=== PATIENT | female | born 1980 | race Native Hawaiian/Other Pacific Islander ===

== ENCOUNTER 2018-06-21 11:32 | Emergency (ER) | payer SELFPAY ==
[~2018-06-21] VITALS: Ht 182.9 cm; Wt 64.9 kg
[2018-06-21] MEDS ORDERED: PROG50VI IM (11:42)
[2018-06-21] MEDS ORDERED: ESTR10VI2 IM (11:43)
--- NOTE | 2018-06-21 11:47 | NUR ---
PT A/OX4, BIB [facility] FOR VAGINAL BLEEDING SINCE THIS AM. PT REPORTS SHE IS 4 WEEKS AND HAS BEEN TO HER [employer]. PT STATES SHE'S BEEN SPOTTING SINCE THIS AM. PT ALSO REPORTS ABD PAIN THAT IS NON-PROVOKED, ACHING IN QUALITY, DOES NOT RADAITE, 06/01, CONSTANT. VSS. PT DENIES C/P, SOB, N/V/D, DIZZINESS, HEADACHE.
[2018-06-21 12:00] LABS: BASOPHILS % (AUTO) 0.3 % (0.0-2.0); EOSINOPHILS # (AUTO) 0.3 K/uL (0.0-0.7); EOSINOPHILS % (AUTO) 1.8 % (0.0-7.0); HEMATOCRIT 39.7 % (31.2-41.9); HEMOGLOBIN 13.5 g/dL (10.9-14.3); LYMPHOCYTES # (AUTO) 1.5 K/uL (20.0-40.0); LYMPHOCYTES % (AUTO) 10.1 % (20.5-51.5); MEAN CORPUSCULAR HEMOGLOBIN 30.3 uug (24.7-32.8); MEAN CORPUSCULAR HGB CONC 34 g/dL (32.3-35.6); MEAN CORPUSCULAR VOLUME 89.1 fL (75.5-95.3); MONOCYTES % (AUTO) 6.6 % (0.0-11.0); NEUTROPHILS # (AUTO) 11.9 K/uL (1.8-8.9); NEUTROPHILS % (AUTO) 81.2 % (38.5-71.5); PLATELET COUNT (AUTO) 219 K/uL (179-408); RED BLOOD CELL COUNT(AUTO) 4.46 MIL/uL (3.63-4.92); WHITE BLOOD COUNT (AUTO) 14.7 K/uL (3.8-11.8)
[2018-06-21 12:03] LABS: *BILIRUBIN,URIN NEGATIVE (NEGATIVE); *BLOOD, URINE 2+ (NEGATIVE); *CLARITY,URINE CLEAR (CLEAR); *COLOR,URINE YELLOW (YELLOW); *KETONES,URINE NEGATIVE (NEGATIVE); *UROBILINOGEN,URINE 0.2 E.U./dl (NORMAL); LEUKOCYTE ESTERASE ,URINE TRACE (NEGATIVE); NITRITE, URINE NEGATIVE (NEGATIVE); PH,URINE 5.5 (5.0-8.0); UGLUCOSE NEGATIVE (NEGATIVE)
--- NOTE | 2018-06-21 12:05 | NUR ---
TERRANCE GU AT BEDSIDE FOR MSE.
[2018-06-21 12:08] LABS: BACTERIA,URINE MODERATE /HPF (NONE SEEN); RBC,URINE 0-3 /HPF (0-3); SQUAMOUS EPITHELIAL CELL,UR MODERATE /HPF (NONE SEEN); WBC,URINE 0-3 /HPF (0-3)
--- NOTE | 2018-06-21 12:36 | NUR ---
US TECH AT BEDSIDE.
--- NOTE | 2018-06-21 13:15 | NUR ---
TERRANCE GU AT BEDSIDE FOR PT UPDATE.
--- NOTE | 2018-06-21 13:50 | NUR ---
PT PROVIDED W/ MEAL TRAY.
--- NOTE | 2018-06-21 14:45 | NUR ---
Patient discharged to home in stable conditon. Written and verbal after care instructions given. Patient verbalizes understanding of instructions. ALL BELONGINGS W/ PT. PT ASSISTED OUT IN W/C BY FAMILY MEMBER TO PRIVATE VEHICLE.
[2018-06-21 15:08] VITALS: BP 116/66
== END 2018-06-21 15:10 | disposition home or self-care (01) ==
LOC: ER 11:32
DX: O20.0 Threatened abortion (principal); Z88.0 Allergy status to penicillin; Z79.899 Other long term (current) drug therapy; Z3A.00 Weeks of gestation of pregnancy not specified
CPT/HCPCS: 36415; 76856; 85025; 86850; 86900; 86901; A4663